=== PATIENT | male | born 2000 | race Caucasian/White ===

== ENCOUNTER 2024-10-12 13:24 | Emergency (ER) | payer SELFPAY ==
[~2024-10-12] VITALS: Ht 175.3 cm; Wt 78.0 kg
[2024-10-12 13:42] VITALS: O2SAT 99
[2024-10-12 15:19] LABS: BASOPHILS % 0.5 % (0.0-2.0); EOSINOPHILS % 3.9 % (0.0-5.0); HEMATOCRIT. 45.6 % (42.0-52.0); HEMOGLOBIN. 15.1 g/dL (14.0-18.0); LYMPHOCYTES % 29.8 % (20.0-50.0); MEAN PLATELET VOLUME 8.7 fl (7.4-10.4); MONOCYTES % 10.0 % (2.0-8.0); NEUTROPHILS % 55.8 % (40.0-76.0); PLATELET 228 x1000/uL (130-400); RED BLOOD CELL COUNT 5.28 mill/uL (4.7-6.1); RED CELL DISTRIBUTION WIDTH 13.2 % (11.6-14.6)
[2024-10-12 15:38] LABS: CREATININE 1.1 mg/dL (0.6-1.3); UREA NITROGEN BLOOD 10 mg/dL (9-23)
[2024-10-12 15:40] LABS: TROPONIN I HIGH SENSITIVITY < 4 ng/L (3.0-53)
[2024-10-12 17:07] VITALS: BP 110/66; PULSE 71; RESP 17; TEMP 36.7; O2SAT 99
== END 2024-10-12 17:09 | disposition home or self-care (01) ==
LOC: ER 13:24
DX: R07.9 Chest pain, unspecified (principal); F14.90 Cocaine use, unspecified, uncomplicated
CPT/HCPCS: 36415; 80048; 84484; 85025; 93005; 99284